=== PATIENT | male | born 1970 | race Two or more races ===

== ENCOUNTER 2019-09-26 12:41 | Emergency (ER) | payer OTHER ==
[~2019-09-26] VITALS: Ht 172.7 cm; Wt 104.8 kg
[2019-09-26 12:48] VITALS: Ht 172.7 cm; Wt 104.8 kg
[2019-09-26 14:18] LABS: BASOPHIL % 0.5 % (0-2); PLATELET COUNT 303 x10^3mcL (130-400); RED CELL DISTRIBUTION WIDTH 12.1 % (11.5-14.5)
[2019-09-26 14:42] LABS: microscopic required? NO
[2019-09-26 14:50] LABS: UA SPECIFIC GRAVITY 1.025 (1.005-1.035); urine erythrocyte NEGATIVE (NEGATIVE)
[2019-09-26 14:52] LABS: T3 TOTAL 1.05 ng/mL
[2019-09-26 14:54] LABS: CALCIUM 9.3 mg/dL (8.5-10.1); CARBON DIOXIDE 28.7 mmol/L (21-32); CHLORIDE SERUM 99 mmol/L (98-107); CREATININE SERUM 0.9 mg/dL (0.7-1.3); GFR1 > 60 mL/min; GLUCOSE SERUM 293 mg/dL (74-106); SODIUM SERUM 136 mmol/L (136-145)
[2019-09-26 14:59] LABS: ALBUMIN 3.8 g/dL (3.4-5.0); ALKALINE PHOSPHATASE 192 U/L (46-116); ALT/SGPT 199 U/L (16-63); AST/SGOT 60 U/L (15-37); BILIRUBIN TOTAL 0.4 mg/dL (0.20-1.00); HDL CHOLESTEROL 51 mg/dL (40-60); TRIGLYCERIDES 153 mg/dL (<150)
[2019-09-26 15:00] LABS: CHOLESTEROL 219 mg/dL (<200); CHOLESTEROL/HDL RATIO 4.3
[2019-09-26 16:34] LABS: FREE T4 0.94 ng/dL (0.76-1.46); FREE THYROXINE INDEX 2.6 ug/dL (1.4-4.5)
[2019-09-26 16:52] VITALS: BP 129/80
== END 2019-09-26 16:52 | disposition home or self-care (01) ==
LOC: ED 12:41
PROVIDERS: Specialist
DX: R53.1 Weakness (principal)
CPT/HCPCS: 36415; 83880; 84439; 87804